=== PATIENT | female | born 1945 | race African-American/Black ===

== ENCOUNTER 2021-09-01 10:59 | Emergency (ER) | payer MEDICARE, MEDICAID ==
[2021-09-01] MEDS ORDERED: Acetaminophen 500 MG TAB ONE ×2 (12:16→12:17)
== END 2021-09-01 13:23 | disposition home or self-care (01) ==
LOC: CSHERS 10:59
DX: M25.572 Pain in left ankle and joints of left foot (principal); M25.571 Pain in right ankle and joints of right foot; I10 Essential (primary) hypertension; E11.9 Type 2 diabetes mellitus without complications; W06.XXXA Fall from bed, initial encounter